=== PATIENT | male | born 1975 | race Caucasian/White ===

== ENCOUNTER 2023-11-20 04:15 | Day surgery (SDC) | payer OTHER ==
[2023-11-16 14:37] VITALS: BMI 29.1
[2023-11-20] MEDS ORDERED: DEXAMETHASONE SOD PHOSPHATE 10 MG/1 ML VIAL ONE (07:28)
[2023-11-20] MEDS ORDERED: LIDOCAINE HCL/PF 1% SDV 5ML VIAL ONE ×2 (07:28→12:55)
[2023-11-20] MEDS ORDERED: SODIUM CHLORIDE 0.9% P/F 10 ML VIAL IJ ONE (07:34)
[2023-11-20] MEDS ORDERED: ACETAMINOPHEN 500 MG TABLET (FP) PO PRN (10:51)
[2023-11-20 14:46] VITALS: BP 154/92; PULSE 80; RESP 22; TEMP 98
== END 2023-11-20 14:40 | disposition home or self-care (01) ==
LOC: JASU-SURG 04:15
PROVIDERS: ATTEND Pain Medicine Pain Medicine
PROC: 3E0R3BZ Introduction of Anesthetic Agent into Spinal Canal, Percutaneous Approach (ICD-10-PCS; 2023-11-20)
PROC: 3E0R33Z Introduction of Anti-inflammatory into Spinal Canal, Percutaneous Approach (ICD-10-PCS; principal; 2023-11-20 13:16)
DX: M54.16 Radiculopathy, lumbar region (principal)
CPT/HCPCS: 76000-TC-FY; J1100